=== PATIENT | male | born 1940 | race Caucasian/White ===

== ENCOUNTER 2020-08-16 19:03 | Inpatient (IN) | payer BC, OTHER ==
[2020-08-16 19:47] VITALS: BMI 28.1
[2020-08-16] MEDS ORDERED: ACETAMINOPHEN 1000 MG/100 ML BAG IVPB ONE (20:22)
[2020-08-16] MEDS ORDERED: WATER IVPB ONE (20:25)
[2020-08-16] MEDS ORDERED: DEXTROSE 5% IVPB ONE (20:25)
[2020-08-16] MEDS ORDERED: CEFOTAXIME SODIUM IVPB ONE (20:25)
[2020-08-16] MEDS ORDERED: ACETAMINOPHEN INJECTION 100 ML IVPB ONE (20:38)
[2020-08-16 21:18] LABS: VENOUS BASE EXCESS -4.1 mmol/L (-2-2); VENOUS O2 SATURATION 74.4 % (70-80); VENOUS PCO2 34.9 mmHg (38-52); VENOUS PH 7.384 (7.310-7.410)
[2020-08-16 21:22] LABS: BASO % 0.7 % (0-2.0); EOS % 0.1 % (0-4.5); HEMATOCRIT 34.1 % (35.4-49); LYMPH % 2.9 % (8-40); MCH 26.4 pg (25.7-33.7); MCHC 32.1 g/dl (32.0-35.9); MEAN CELL VOLUME 82.1 fl (80-96); MEAN PLT VOLUME 7.3 fl (7.5-11.1); MONO % 3.2 % (3.8-10.2); NEUT % 93.1 % (42.8-82.8); PLATELET COUNT 569 K/MM3 (134-434); RBC 4.15 M/mm3 (4.00-5.60); RDW 14.9 % (11.9-15.9); WHITE BLOOD COUNT 15.3 K/mm3 (4.0-10.0)
[2020-08-16] MEDS ORDERED: CEFOTAXIME SODIUM 2,000 MG in DEXTROSE 5%-WATER - 50 ML IVPB ONE (21:25)
[2020-08-16 21:30] LABS: INR 1.2 (0.83-1.09); PROTHROMBIN TIME (PATIENT) 14.7 SEC (9.7-13.0)
[2020-08-16 21:33] LABS: ACTIVATED PTT 30.5 SECONDS (25.2-36.5)
[2020-08-16 21:42] LABS: CHLORIDE 107 mmol/L (98-107); SODIUM 136 mmol/L (136-145)
[2020-08-16 21:45] LABS: EPI CELLS 17 /uL (0-25.1); HYALINE CASTS 6 /uL (0-3.1); URINE APPEARANCE CLEAR; URINE BACTERIA 66 /uL (0-1359); URINE BILIRUBIN NEGATIVE (NEGATIVE); URINE COLOR YELLOW; URINE GLUCOSE (UA) NEGATIVE (NEGATIVE); URINE KETONE NEGATIVE (NEGATIVE); URINE LEUK ESTERASE NEGATIVE (NEGATIVE); URINE NITRITE NEGATIVE (NEGATIVE); URINE PROTEIN 1+ (NEGATIVE); URINE RBC 14 /uL (0-23.9); URINE UROBILINOGEN 0.2 mg/dL (0.2-1.0); URINE WBC 11 /uL (0-25.8)
[2020-08-16 21:45] LABS: CALCIUM 8.7 mg/dL (8.5-10.1)
[2020-08-16 21:46] LABS: ALBUMIN 2.4 g/dl (3.4-5.0); ANION GAP 6 MMOL/L (8-16); BLOOD UREA NITROGEN 25.8 mg/dL (7-18); CO2 23 mmol/L (21-32); GLUCOSE,RANDOM 106 mg/dL (74-106)
[2020-08-16 21:49] LABS: CREATININE 1.7 mg/dL (0.55-1.3); SGOT/AST 24 U/L (15-37); SGPT/ALT 18 U/L (13-61)
[2020-08-16 21:51] LABS: BILIRUBIN,TOTAL 0.3 mg/dL (0.2-1); TOT PROT 7.5 g/dl (6.4-8.2)
[2020-08-16 21:52] LABS: ALK PHOS 80 U/L (45-117)
[2020-08-16] MEDS ORDERED: PIPERACILLIN/TAZOB 4.5 GM 4.5 GM in DEXTROSE 5%-WATER 100 ML IVPB ONE (22:06)
[2020-08-16] MEDS ORDERED: VANCOMYCIN 1 GM in D5W (PRE-DOCKED) 1,000 MG/250 ML IVPB ONE (22:06)
[2020-08-16] MEDS ORDERED: SODIUM CHLORIDE 0.9% 500 ML INFUS.BAG IV ONE (22:07)
[2020-08-16 22:49] LABS: BF WBC & OTHER NUCLEATED CELLS 3907 /mm3
[2020-08-16] MEDS ORDERED: PIPERACILLIN/TAZOB 4.5 GM 4.5 GM/100 ML BAG IVPB ONE (23:44)
[2020-08-16 23:51] LABS: PLATELET ESTIMATE SLT INCREASE
[2020-08-17] MEDS ORDERED: VANCOMYCIN 1 GRAM (PRE-DOCKED) 1,000 MG/250 ML BAG IVPB ONE (00:20)
[2020-08-17] MEDS ORDERED: ALBUMIN HUMAN 25% 100 ML VIAL IVPB ONE (02:45)
[2020-08-17] MEDS: ALBUMIN HUMAN 25% 100 ML VIAL IVPB SCH ×3 (04:35→07:26)
[2020-08-17] MEDS ORDERED: ALBUMIN HUMAN 25% 12.5 GM/50 ML VIAL IVPB ONE (07:00)
[2020-08-17 07:31] LABS: BASO % 0.4 % (0-2.0); EOS % 0.1 % (0-4.5); HEMATOCRIT 30.2 % (35.4-49); HEMOGLOBIN 9.7 GM/dL (11.7-16.9); LYMPH % 10.3 % (8-40); MCH 26.7 pg (25.7-33.7); MCHC 31.9 g/dl (32.0-35.9); MEAN CELL VOLUME 83.6 fl (80-96); MEAN PLT VOLUME 7.4 fl (7.5-11.1); MONO % 5.4 % (3.8-10.2); NEUT % 83.8 % (42.8-82.8); PLATELET COUNT 478 K/MM3 (134-434); RBC 3.61 M/mm3 (4.00-5.60); RDW 15.5 % (11.9-15.9); WHITE BLOOD COUNT 11.3 K/mm3 (4.0-10.0)
[2020-08-17] MEDS ORDERED: DEXTROSE 50%-WATER 25 GM/50 ML DISP.SYRIN ONE (07:34)
[2020-08-17] MEDS ORDERED: DEXTROSE 50%-WATER - 25 GM/50 ML VIAL IVPUSH ONE (07:34)
[2020-08-17] MEDS: INSULIN SLIDING SCALE (NOVOLOG) 1 VIAL SQ SCH ×4 (07:35→22:39)
[2020-08-17] MEDS ORDERED: PIPERACILLIN/TAZOB 4.5 GM 4.5 GM/100 ML BAG IVPB ONE ×3 (07:36→21:17)
[2020-08-17 07:57] LABS: ALBUMIN 2.5 g/dl (3.4-5.0); BLOOD UREA NITROGEN 28.5 mg/dL (7-18); CALCIUM 7.8 mg/dL (8.5-10.1)
[2020-08-17 07:58] LABS: MAGNESIUM 1.2 mg/dL (1.8-2.4)
[2020-08-17 08:00] LABS: CREATININE 1.7 mg/dL (0.55-1.3)
[2020-08-17 08:01] LABS: PHOSPHOROUS 4.1 mg/dL (2.5-4.9)
[2020-08-17 08:02] LABS: BILIRUBIN,TOTAL 0.5 mg/dL (0.2-1); TOT PROT 6.4 g/dl (6.4-8.2)
[2020-08-17] MEDS: PIPERACILLIN/TAZOB 4.5 GM 4.5 GM in DEXTROSE 5%-WATER 100 ML IVPB SCH ×3 (09:07→21:56)
[2020-08-17] MEDS ORDERED: VANCOMYCIN HCL IVPB ONE (10:00)
[2020-08-17] MEDS ORDERED: WATER IVPB ONE (10:00)
[2020-08-17] MEDS ORDERED: DEXTROSE 5% IVPB ONE (10:00)
[2020-08-17] MEDS ORDERED: PIPERACILLIN/TAZOB 4.5 GM 4.5 GM in DEXTROSE 5%-WATER 100 ML IVPB SCH (10:00)
[2020-08-17 10:41] VITALS: TEMP 98.9
[2020-08-17] MEDS ORDERED: DEXTROSE 5%-WATER - 1,000 ML IV SCH (14:15)
[2020-08-17 19:44] VITALS: BP 115/49; PULSE 93
[2020-08-18] MEDS ORDERED: CEFEPIME 1 GM in DEXTROSE 5%-WATER - 1 GM/50 ML IVPB IVPB SCH (10:00)
[2020-08-21 14:35] LABS: BODY FLUID MACROPHAGES 6 %; BODY FLUID MESOTHELIAL 3 %; BODYL FLD EOSINOPHIL 2 %
== END 2020-08-18 05:15 | disposition short-term general hospital (02) | DRG 919 ==
LOC: JER 19:03 → JERBED 21:11
PROVIDERS: ADMIT Internal Medicine; ATTEND Internal Medicine
PROC: 0W9G3ZX Drainage of Peritoneal Cavity, Percutaneous Approach, Diagnostic (ICD-10-PCS; principal; 2020-08-16)
DX: T85.9XXA Unspecified complication of internal prosthetic device, implant and graft, initial encounter (principal); K65.8 Other peritonitis; R18.0 Malignant ascites; N17.9 Acute kidney failure, unspecified; E11.9 Type 2 diabetes mellitus without complications; K21.9 Gastro-esophageal reflux disease without esophagitis; D64.9 Anemia, unspecified; C45.9 Mesothelioma, unspecified; H91.93 Unspecified hearing loss, bilateral; E78.5 Hyperlipidemia, unspecified; I25.10 Atherosclerotic heart disease of native coronary artery without angina pectoris; B96.20 Unspecified Escherichia coli [E. coli] as the cause of diseases classified elsewhere; I25.2 Old myocardial infarction; R00.0 Tachycardia, unspecified; R94.31 Abnormal electrocardiogram [ECG] [EKG]; N18.9 Chronic kidney disease, unspecified; I12.9 Hypertensive chronic kidney disease with stage 1 through stage 4 chronic kidney disease, or unspecified chronic kidney disease; E11.22 Type 2 diabetes mellitus with diabetic chronic kidney disease; Z95.5 Presence of coronary angioplasty implant and graft; Y83.8 Other surgical procedures as the cause of abnormal reaction of the patient, or of later complication, without mention of misadventure at the time of the procedure
CPT/HCPCS: 36415; 71045-TC-FY; 74176-TC; 80053; 81003; 82042; 82550; 82565; 82803; 82962; 83605; 83735; 84100; 84157; 84300; 84484; 85025; 85610; 85730; 87040; 87070; 87075; 87086; 87186; 87205; 93005; 93010; 99285-25; C9803; J0131; P9047; U0003